=== PATIENT | male | born 1955 | race Caucasian/White ===

== ENCOUNTER 2023-04-22 08:00 | Outpatient (CLI) | payer MEDICARE ==
[~2023-04-22] VITALS: Ht 182.9 cm; Wt 79.4 kg
[2023-04-22] MEDS ORDERED: IPRA4AER INH (11:27)
[2023-04-22] MEDS ORDERED: HYDR12.55 PO (11:27)
[2023-04-22] MEDS ORDERED: ADV50250 INH (11:27)
[2023-04-22] MEDS ORDERED: OMEG100037 PO (11:27)
[2023-04-22] MEDS ORDERED: ALBU10.7 INH (11:27)
[2023-04-22] MEDS ORDERED: MILK THISTLE (11:27)
[2023-04-22] MEDS ORDERED: AMLO2.5T5 PO (11:27)
[2023-04-22 11:54] LABS: BASOPHILS # (AUTO) 0.1 X10'3 (0-0.2); BASOPHILS % (AUTO) 0.8 % (0-1); EOSINOPHILS # (AUTO) 0.2 X10'3 (0-0.9); EOSINOPHILS % (AUTO) 3.1 % (0-6); LYMPHOCYTES # (AUTO) 1.4 X10'3 (1.1-4.8); MEAN CORPUSCULAR HEMOGLOBIN 30.8 PG (27.0-31.0); MEAN CORPUSCULAR HGB CONC 34.9 g/dL (33.0-36.5); MEAN CORPUSCULAR VOLUME 88.2 FL (78-98); MEAN PLATELET VOLUME 6.7 FL (7.4-10.4); MONOCYTES # (AUTO) 0.6 X10'3 (0-0.9); MONOCYTES % (AUTO) 9.2 % (2-12); NEUTROPHILS # (AUTO) 4.5 X10'3 (1.8-7.7); NEUTROPHILS % (AUTO) 66.9 % (42-75); PRE OP HEMATOCRIT 44.8 % (42.0-52.0); PRE OP HEMOGLOBIN 15.6 g/dL (14.0-17.9); PRE OP PLATELET COUNT 375 X10'3 (140-440); PRE OP WHITE BLOOD COUNT 6.8 10'3 (4.8-10.8); RED BLOOD COUNT 5.08 X10'6 (4.70-6.10); RED CELL DISTRIBUTION WIDTH 12.2 % (11.5-14.5)
[2023-04-22 12:10] LABS: ALBUMIN 3.2 G/DL (3.4-5.0); ALBUMIN/GLOBULIN RATIO 0.7 (1.1-1.5); ALKALINE PHOSPHATASE 71 IU/L (46-116); BLOOD UREA NITROGEN 17 MG/DL (7-18); BUN/CREATININE RATIO 19.1 (10.0-20.0); CALCIUM 9.2 MG/DL (8.5-10.1); CHLORIDE 101 MMOL/L (99-107); CREATININE 0.89 MG/DL (0.60-1.10); PRE OP ALT 24 U/L (30-65); PRE OP ANION GAP 9 (8-16); PRE OP AST 25 U/L (10-37); PRE OP BILIRUB, TOTAL 0.4 MG/DL (0.0-1.0); PRE OP GLUCOSE 94 MG/DL (70-104); PRE OP SODIUM 136 MMOL/L (135-145); TOTAL CARBON DIOXIDE 25.8 MMOL/L (24-32); TOTAL PROTEIN 7.9 G/DL (6.4-8.2); eGFR 85 ML/MIN
[2023-04-22 12:19] LABS: PRE OP POTASSIUM 3.8 MMOL/L (3.4-5.1)
[2023-04-28] MEDS ORDERED: ringers solution, lacted 1,000 ML IV SCH (05:00)
[2023-04-28] MEDS ORDERED: famotidine 20mg tablet PO ONE (05:30)
[2023-04-28] MEDS ORDERED: cefazolin 2gm/D5W 100mL 100 ML IV ONE (05:30)
[2023-04-28] MEDS ORDERED: albuterol 2.5 MG/3 ML nebule NEB ONE (05:30)
== END 2023-04-22 23:00 | disposition home or self-care (01) ==
LOC: LAB 08:00 → EDSTATUS 04-28 07:30
PROVIDERS: ATTEND Surgery
DX: Z01.818 Encounter for other preprocedural examination (principal); K40.20 Bilateral inguinal hernia, without obstruction or gangrene, not specified as recurrent
CPT/HCPCS: 36415; 71046; 80053; 85025; 93005; J0690; J7120

== ENCOUNTER 2023-06-30 10:16 | Day surgery (SDC) | payer MEDICARE ==
[2023-06-25 10:50] LABS: BASOPHILS # (AUTO) 0.1 X10'3 (0-0.2); EOSINOPHILS # (AUTO) 0.2 X10'3 (0-0.9); EOSINOPHILS % (AUTO) 2.5 % (0-6); LYMPHOCYTES # (AUTO) 1.9 X10'3 (1.1-4.8); LYMPHOCYTES % (AUTO) 29.7 % (21-51); MEAN CORPUSCULAR HEMOGLOBIN 30.4 PG (27.0-31.0); MEAN CORPUSCULAR VOLUME 89.5 FL (78-98); MEAN PLATELET VOLUME 7.1 FL (7.4-10.4); MONOCYTES # (AUTO) 0.6 X10'3 (0-0.9); MONOCYTES % (AUTO) 9.8 % (2-12); NEUTROPHILS # (AUTO) 3.6 X10'3 (1.8-7.7); PRE OP HEMATOCRIT 47.3 % (42.0-52.0); PRE OP PLATELET COUNT 220 X10'3 (140-440); PRE OP WHITE BLOOD COUNT 6.4 10'3 (4.8-10.8); RED BLOOD COUNT 5.28 X10'6 (4.70-6.10); RED CELL DISTRIBUTION WIDTH 14.1 % (11.5-14.5)
[2023-06-25 11:05] LABS: ALBUMIN 3.6 G/DL (3.4-5.0); ALKALINE PHOSPHATASE 68 IU/L (46-116); BLOOD UREA NITROGEN 19 MG/DL (7-18); BUN/CREATININE RATIO 22.4 (10.0-20.0); CALCIUM 8.7 MG/DL (8.5-10.1); CHLORIDE 106 MMOL/L (99-107); CREATININE 0.85 MG/DL (0.60-1.10); PRE OP ALT 37 U/L (30-65); PRE OP ANION GAP 9 (8-16); PRE OP AST 18 U/L (10-37); PRE OP BILIRUB, TOTAL 0.5 MG/DL (0.0-1.0); PRE OP GLUCOSE 85 MG/DL (70-104); PRE OP POTASSIUM 4.2 MMOL/L (3.4-5.1); PRE OP SODIUM 141 MMOL/L (135-145); TOTAL CARBON DIOXIDE 25.6 MMOL/L (24-32); TOTAL PROTEIN 7.1 G/DL (6.4-8.2); eGFR 89 ML/MIN
[2023-06-30] VITALS (23 sets, daily range): BP systolic 98–154; BP diastolic 50–88; PULSE 61–85; RESP 8–21; TEMP 98.4; O2SAT 94–100
[~2023-06-30] VITALS: Ht 182.9 cm; Wt 84.4 kg
[~2023-06-30 10:16] MED LIST: ADV50250 INH; AMLO2.5T5 PO; BUPIVAcaine/PF 2.5mg/ml (0.25%) 10ml vial ONE; CHOL500050 PO; EZET10TA48 PO; IPRA4AER INH; LIDOcaine 1% (10mg/ml)w/preservative inj. 20ml MDV ONE; LIDOcaine 1% 30ml preserv. free vial ONE; LORA10TA7 PO; MILK THISTLE; MONT-40 PO; OMEG100037 PO; ROSU5TAB12 PO; cefazolin 2gm/D5W 100mL 100 ML IV ONE; famotidine 20mg tablet PO ONE; ringers solution, lacted 1,000 ML IV SCH
[2023-06-30] MEDS ORDERED: tamsulosin 0.4mg capsule PO ONE (10:45)
[2023-06-30] MEDS ORDERED: BUPIVAcaine/PF 2.5mg/ml (0.25%) 10ml vial ONE (11:42)
[2023-06-30] MEDS ORDERED: LIDOcaine 1% 30ml preserv. free vial ONE (11:42)
[2023-06-30] MEDS ORDERED: ringers solution, lacted 1,000 ML IV SCH (12:15)
[2023-06-30] MEDS ORDERED: sevoflurane 250ml liquid IH ONE (12:15)
[2023-06-30] MEDS ORDERED: morphine 4 MG/ML inj SYRINge IV PRN (12:15)
[2023-06-30] MEDS ORDERED: proCHLORperazine 10 MG/2 ml inj IV PRN (12:15)
[2023-06-30] MEDS ORDERED: ondansetron/PF 4mg/2ml inj IV PRN (12:15)
[2023-06-30] MEDS ORDERED: morphine 2 MG/ML inj. syringe IV PRN (12:15)
[2023-06-30] MEDS ORDERED: meperidine/PF 25mg/ml syringe IV PRN ×3 (12:15)
[2023-06-30] MEDS ORDERED: midazolam 1 mg/ML 2ml injection ONE (12:18)
[2023-06-30] MEDS ORDERED: fentaNYL/PF 50MCG/1 ML 2ML syringe ONE (12:18)
[2023-06-30] MEDS ORDERED: propofol inj 20 ML IV ONE (12:26)
[2023-06-30] MEDS ORDERED: rocuronium 10mg/ml inj IV ONE (12:26)
[2023-06-30] MEDS ORDERED: LIDOcaine 2% (20mg/ml) 5ml vial ONE (12:26)
[2023-06-30] MEDS ORDERED: BUPIVAcaine/PF 2.5mg/ml (0.25%) 10ml vial IJ ONE (12:45)
[2023-06-30] MEDS ORDERED: LIDOcaine 1% 30ml preserv. free vial IJ ONE (12:46)
[2023-06-30] MEDS ORDERED: acetaminophen 1,000mg/100ml IV 100 ML IV ONE (13:03)
[2023-06-30] MEDS ORDERED: ondansetron/PF 4mg/2ml inj ONE (13:08)
[2023-06-30] MEDS ORDERED: dexamethasone sod phosphate 4mg/ml inj. ONE (13:08)
[2023-06-30] MEDS ORDERED: sugammadex 200mg/2ml injection IV ONE (13:21)
[2023-06-30] MEDS ORDERED: glycopyrrolate 0.2mg/ml inj ONE (13:25)
[2023-06-30] MEDS ORDERED: HYDROcodone/acetaminophen 5mg/325mg tablet PO PRN (13:45)
[2023-06-30] MEDS ORDERED: ipratropium/albuterol 3ml nebule NEB STA (16:02)
== END 2023-06-30 16:52 | disposition home or self-care (01) ==
LOC: PRE-OP 10:16
PROVIDERS: ATTEND Surgery
DX: K40.90 Unilateral inguinal hernia, without obstruction or gangrene, not specified as recurrent (principal); K42.0 Umbilical hernia with obstruction, without gangrene; E78.5 Hyperlipidemia, unspecified; J45.909 Unspecified asthma, uncomplicated; I10 Essential (primary) hypertension; Z79.899 Other long term (current) drug therapy; Z91.040 Latex allergy status; Z87.442 Personal history of urinary calculi; Z98.890 Other specified postprocedural states
CPT/HCPCS: 36415; 49592; 49650; 80053; 82948; 85025; 94640; 94760; C1781; J0131; J0690; J1100; J2175; J2250; J2405; J2704; J3010; J3490; J7030; J7120; Z7506; Z7508; Z7512; A4215; A4618